=== PATIENT | male | born 1970 | race African-American/Black ===

== ENCOUNTER 2016-09-29 22:02 | Emergency (ER) | payer SELFPAY ==
[~2016-09-29] VITALS: Ht 172.7 cm; Wt 72.7 kg
[2016-09-29 22:06] VITALS: BP 117/79
[2016-09-29] MEDS ORDERED: KETOROLAC 30 MG/1 ML ONE (22:54)
[2016-09-29] MEDS ORDERED: KETOROLAC 30 MG/1 ML IM ONE (23:00)
== END 2016-09-29 23:18 | disposition home or self-care (01) ==
LOC: ED 23:12
DX: M54.2 Cervicalgia (principal)
CPT/HCPCS: 96372; 99283; J1885

== ENCOUNTER 2016-11-23 12:05 | Emergency (ER) | payer MEDICAID ==
[~2016-11-23] VITALS: Ht 172.7 cm; Wt 75.0 kg
[2016-11-23 12:10] VITALS: BP 129/84
[2016-11-23] MEDS ORDERED: KETOROLAC 30 MG/1 ML ONE ×2 (13:42→13:49)
[2016-11-23] MEDS ORDERED: KETOROLAC 30 MG/1 ML IM ONE (14:00)
== END 2016-11-23 14:39 | disposition home or self-care (01) ==
LOC: ED 14:20
DX: S90.02XA Contusion of left ankle, initial encounter (principal); X50.9XXA Other and unspecified overexertion or strenuous movements or postures, initial encounter; Y93.89 Activity, other specified; Y99.8 Other external cause status; Y92.009 Unspecified place in unspecified non-institutional (private) residence as the place of occurrence of the external cause
CPT/HCPCS: 29515; 73610; 99284; J1885